=== PATIENT | female | born 1975 | race Caucasian/White ===

== ENCOUNTER 2023-03-05 09:51 | Emergency (ER) | payer MEDICAID, OTHER ==
[~2023-03-05] VITALS: Ht 170.2 cm; Wt 90.7 kg
[2023-03-05 10:04] VITALS: BP 140/75; TEMP 97.9; O2SAT 99
[2023-03-05] MEDS ORDERED: KETOROLAC TROMETHAMINE INJ 30 MG/ML VIAL IM ONE (10:30)
[2023-03-05] MEDS ORDERED: CYCLOBENZAPRINE 10 MG TABLET PO ONE (10:30)
[2023-03-05] MEDS ORDERED: KETOROLAC TROMETHAMINE INJ 30 MG/ML VIAL ONE (11:13)
[2023-03-05] MEDS ORDERED: CYCLOBENZAPRINE 10 MG TABLET ONE (11:13)
[2023-03-05] MEDS ORDERED: IBUP-1955 PO (13:29)
[2023-03-05] MEDS ORDERED: CYCL5TAB PO (13:29)
== END 2023-03-05 13:45 | disposition home or self-care (01) ==
LOC: ER 09:51
DX: M25.511 Pain in right shoulder (principal); M54.50 Low back pain, unspecified; M54.2 Cervicalgia; Z79.899 Other long term (current) drug therapy; V43.02XA Car driver injured in collision with other type car in nontraffic accident, initial encounter; Y93.89 Activity, other specified; Y92.89 Other specified places as the place of occurrence of the external cause; Y99.8 Other external cause status
CPT/HCPCS: 99284; 96372; 72050; 72110; 73030; J1885